=== PATIENT | male | born 1995 | race Caucasian/White ===

== ENCOUNTER 2020-07-27 17:40 | Emergency (ER) | payer BC, OTHER ==
[~2020-07-27] VITALS: Ht 195.6 cm; Wt 136.4 kg
[2020-07-27] MEDS ORDERED: ONDANSETRON 4 MG ORAL DISINTEGRATING TAB PO ONE (19:25)
[2020-07-27] MEDS ORDERED: ACETAMINOPHEN 500 MG TAB PO ONE (19:25)
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
[2020-07-27] MEDS ORDERED: ONDA4TAB6 PO (20:06)
[2020-07-27 20:11] VITALS: BP 129/74
== END 2020-07-27 21:04 | disposition home or self-care (01) ==
LOC: M ED 17:40
DX: S20.211A Contusion of right front wall of thorax, initial encounter (principal); S06.0X0A Concussion without loss of consciousness, initial encounter; W00.0XXA Fall on same level due to ice and snow, initial encounter; W22.8XXA Striking against or struck by other objects, initial encounter; Y92.9 Unspecified place or not applicable; Y93.9 Activity, unspecified; Y99.0 Civilian activity done for income or pay
CPT/HCPCS: 70450; 71101; 99283; Q0162